=== PATIENT | female | born 1965 | race African-American/Black ===

== ENCOUNTER 2016-08-31 15:53 | Emergency (ER) | payer OTHER ==
[~2016-08-31] VITALS: Ht 157.5 cm; Wt 79.8 kg
[~2016-08-31 15:53] MED LIST: ACETAMINOPHEN325 M1 PO; AMITRIPTYLINE H50 M2; BENTYL20 MG PO; CIPROFLOXACIN500 M1 PO; CREON PO; FLAGYL500 MG PO; FLEXERIL PO; GABAPENTIN PO; HYDROCODON-ACE1 EAC7 PO; IBUPROFEN 800800 MG PO; MOTRIN 600 MG600 M1 PO; MUSCLE RELAXER; NORCO 10-325 T1 EACH PO; NORCO 5-325 TA1 EACH PO; PERCOCET 5-3251 EACH PO; PHENERGAN 25 MG25 M1 PO; PREDNISONE50 MG PO; PRILOSEC 20 MG20 MG PO; PROAIR HFA8.5 GM IH; PROMETHAZINE-C120 ML PO; PROTONIX40 M2 PO; SEROQUEL200 MG PO; VIBRAMYCIN100 MG PO; VICODIN HP 10-1 EAC1; VITAMIN D2000 UNI1; XANAX PO; XANAX XR1 MG PO; ZOLOFT100 MG PO; ZPAK PO; [UNRECOGNIZED DRUG - REMARK]
[2016-08-31] MEDS ORDERED: KEFLEX500 MG PO (18:41)
[2016-08-31] MEDS ORDERED: HYDROCODONE-AP1 EAC6 PO (18:41)
[2016-08-31 19:19] VITALS: BP 131/81
== END 2016-08-31 19:20 | disposition home or self-care (01) ==
LOC: ER 15:53
DX: S62.632B Displaced fracture of distal phalanx of right middle finger, initial encounter for open fracture (principal); M79.7 Fibromyalgia; F41.9 Anxiety disorder, unspecified; F17.210 Nicotine dependence, cigarettes, uncomplicated; F32.9 Major depressive disorder, single episode, unspecified; W22.8XXA Striking against or struck by other objects, initial encounter; Y93.89 Activity, other specified; Y92.89 Other specified places as the place of occurrence of the external cause; Y99.9 Unspecified external cause status

== ENCOUNTER → 2017-08-02 | Outpatient (CLI) | payer OTHER ==
[~2017-08-02] MED LIST changes: +HYDROCODONE-AP1 EAC6 PO; +KEFLEX500 MG PO
== END ==
LOC: RAD 11:42
DX: Z12.31 Encounter for screening mammogram for malignant neoplasm of breast (principal)

== ENCOUNTER 2017-10-08 15:33 | Emergency (ER) | payer OTHER ==
[~2017-10-08] VITALS: Ht 157.5 cm; Wt 73.9 kg
[~2017-10-08 15:33] MED LIST changes: -VITAMIN D2000 UNI1; +VITAMIN D2000 UNI1 PO
[2017-10-08 16:28] LABS: HEMATOCRIT 43.5 % (37.0-47.0); HEMOGLOBIN 14.6 gm/dL (12.0-15.0); MCH 27.7 pg (26.0-34.0); MCHC 33.5 g/dL (28.0-37.0); MCV 82.6 fL (80.0-100.0); PLATELET COUNT 245 thou/uL (150-400); RBC 5.27 mil/uL (4.20-5.00); RDW 14.9 % (10.5-14.5); WBC 6.3 thou/uL (4.0-11.0)
[2017-10-08 16:37] LABS: CALCIUM 9.4 mg/dL (8.5-10.1); CREATININE 0.7 mg/dL (0.6-1.0); POTASSIUM 4.2 mmol/L (3.5-5.1)
[2017-10-08 16:43] LABS: ALBUMIN 3.8 g/dL (3.4-5.0); TOTAL BILIRUBIN 0.3 mg/dL (<0.1-1.0); TOTAL PROTEIN 7.8 g/dL (6.4-8.2)
[2017-10-08] MEDS ORDERED: OXYCODONE HCL 55 MG PO (16:56)
[2017-10-08] MEDS ORDERED: FLEXERIL PO (16:56)
[2017-10-08] MEDS ORDERED: SEROQUEL 25 MG25 M1 PO (16:57)
[2017-10-08] MEDS ORDERED: GLUCOPHAGE XR750 MG PO (16:58)
[2017-10-08] MEDS ORDERED: ERGOCALCIF50000 UNIT PO (16:58)
[2017-10-08 17:10] LABS: ABSOLUTE NEUTROPHILS 2.9 thou/uL (1.4-8.2)
[2017-10-08 17:11] LABS: ANISOCYTOSIS 1+; ATYPICAL LYMPHS 4 %
[2017-10-08] MEDS ORDERED: CLEOCIN HCL150 MG PO (17:55)
[2017-10-08 18:17] VITALS: BP 136/85
== END 2017-10-08 18:17 | disposition home or self-care (01) ==
LOC: ER 15:33
PROVIDERS: Physician Assistant
DX: H00.034 Abscess of left upper eyelid (principal); F41.9 Anxiety disorder, unspecified; F32.9 Major depressive disorder, single episode, unspecified; M19.90 Unspecified osteoarthritis, unspecified site; M79.7 Fibromyalgia; Z88.8 Allergy status to other drugs, medicaments and biological substances; F17.210 Nicotine dependence, cigarettes, uncomplicated

== ENCOUNTER → 2018-01-18 | Emergency (ER) | payer OTHER ==
[~2018-01-18] VITALS: Ht 157.5 cm; Wt 72.6 kg
[~2018-01-18] MED LIST changes: +CLEOCIN HCL150 MG PO; +ERGOCALCIF50000 UNIT PO; +GLUCOPHAGE XR750 MG PO; +OXYCODONE HCL 55 MG PO; +SEROQUEL 25 MG25 M1 PO
[2018-01-18 13:52] VITALS: BP 154/88
== END ==
LOC: ER 11:10
DX: H57.12 Ocular pain, left eye (principal); M19.90 Unspecified osteoarthritis, unspecified site; F41.9 Anxiety disorder, unspecified; F32.9 Major depressive disorder, single episode, unspecified; F17.210 Nicotine dependence, cigarettes, uncomplicated; Z88.8 Allergy status to other drugs, medicaments and biological substances

== ENCOUNTER 2021-03-04 22:35 | Emergency (ER) | payer OTHER ==
[~2021-03-04] VITALS: Ht 157.5 cm; Wt 67.1 kg
[2021-03-05 00:56] VITALS: BP 148/79
== END 2021-03-05 00:58 | disposition home or self-care (01) ==
LOC: ER 22:35
DX: R21 Rash and other nonspecific skin eruption (principal); M79.7 Fibromyalgia; M19.90 Unspecified osteoarthritis, unspecified site; F17.210 Nicotine dependence, cigarettes, uncomplicated; Z88.8 Allergy status to other drugs, medicaments and biological substances

== ENCOUNTER 2021-04-21 19:17 | Emergency (ER) | payer OTHER ==
[~2021-04-21] VITALS: Ht 157.5 cm; Wt 63.5 kg
[2021-04-21 19:18] VITALS: BP 118/77
== END 2021-04-21 20:02 | disposition home or self-care (01) ==
LOC: ER 19:17
DX: M25.511 Pain in right shoulder (principal); M25.521 Pain in right elbow; M19.90 Unspecified osteoarthritis, unspecified site; F41.9 Anxiety disorder, unspecified; F32.9 Major depressive disorder, single episode, unspecified; F17.210 Nicotine dependence, cigarettes, uncomplicated; Z79.899 Other long term (current) drug therapy; Z91.09 Other allergy status, other than to drugs and biological substances; Z88.8 Allergy status to other drugs, medicaments and biological substances

== ENCOUNTER 2021-05-17 22:16 | Emergency (ER) | payer OTHER ==
[~2021-05-17] VITALS: Ht 157.5 cm; Wt 64.4 kg
[2021-05-18] MEDS ORDERED: VALIUM2 MG PO (00:11)
[2021-05-18] MEDS ORDERED: IBUPROFEN 800800 MG PO (00:11)
[2021-05-18 00:41] VITALS: BP 108/59
== END 2021-05-18 00:41 | disposition home or self-care (01) ==
LOC: ER 22:16
DX: M25.511 Pain in right shoulder (principal); M62.838 Other muscle spasm; M19.90 Unspecified osteoarthritis, unspecified site; F41.9 Anxiety disorder, unspecified; F32.9 Major depressive disorder, single episode, unspecified; F17.210 Nicotine dependence, cigarettes, uncomplicated; Z79.899 Other long term (current) drug therapy; Z88.8 Allergy status to other drugs, medicaments and biological substances; Z88.9 Allergy status to unspecified drugs, medicaments and biological substances